=== PATIENT | female | born 1950 | race African-American/Black ===

== ENCOUNTER 2021-06-15 06:44 | Emergency (ER) | payer SELFPAY ==
[~2021-06-15] VITALS: Ht 167.6 cm; Wt 68.0 kg
[2021-06-15] MEDS ORDERED: TETANUS, DIPHTHERIA, PERTUSSIS VAC/PF 0.5ML (>10YR OLD) IM ONE (07:00)
[2021-06-15] MEDS ORDERED: ACETAMINOPHEN 325MG TABLET PO ONE (07:00)
[2021-06-15] MEDS ORDERED: AMOX-494 MT (09:43)
[2021-06-15] MEDS ORDERED: BO1 TP (09:43)
[2021-06-15 10:27] VITALS: BP 146/51
== END 2021-06-15 10:29 | disposition home health service (06) ==
LOC: ER 06:44
DX: S80.02XA Contusion of left knee, initial encounter (principal); S80.01XA Contusion of right knee, initial encounter; S60.211A Contusion of right wrist, initial encounter; S03.2XXA Dislocation of tooth, initial encounter; V99.XXXA Unspecified transport accident, initial encounter; Y93.89 Activity, other specified; Y92.89 Other specified places as the place of occurrence of the external cause; Y99.8 Other external cause status
CPT/HCPCS: 73080; 73110; 73560; 90471; 90715; 99284; Z7610